=== PATIENT | female | born 1995 | race Hispanic/Latino ===

== ENCOUNTER → 2023-02-27 14:28 | Outpatient (CLI) | payer OTHER, MEDICAID, SELFPAY ==
[2023-03-02 12:43] LABS: Candida species Negative (Negative); Gardnerella vaginalis Positive (Negative); Trichomoas vaginalis Negative (Negative)
== END ==
PROVIDERS: Visit Provider Student in an Organized Health Care Education/Training Program
DX: N89.8 Other specified noninflammatory disorders of vagina (principal)
CPT/HCPCS: 87480; 87510; 87660

== ENCOUNTER → 2023-03-06 16:08 | Outpatient (CLI) | payer OTHER, MEDICAID, SELFPAY ==
[2023-03-06 17:43] LABS: Add Manual Diff / Slide Review NO; Basophils Absolute Auto 100 /uL (0-100); Basophils Percent Auto 0.4 % (0-2); Eosinophils Absolute Auto 100 /uL (0-450); Eosinophils Percent Auto 0.8 % (2-4); Hematocrit 41.9 % (36-46); Hemoglobin 14.3 g/dL (12.0-16.0); Lymphocytes Absolute Auto 2900 /uL (1100-4500); Lymphocytes Percent Auto 19.8 % (25-40); Mean Corpuscular HGB Conc 34.1 % (30-36); Mean Corpuscular Hemoglobin 29.7 PG (26-34); Mean Corpuscular Volume 87.3 fL (80-100); Monocytes Absolute Auto 900 /uL (0-900); Monocytes Percent Auto 6.1 % (3-14); Neutrophils Absolute Auto 10700 /uL (1500-7000); Neutrophils Percent Auto 72.9 % (50-75); Platelet Count 238 X10^3/uL (150-400); Red Blood Cell Count 4.79 X10^6/uL (4.0-5.2); Red Cell Distribution Width 13.6 % (11.6-14.8); White Blood Cell Count 14.7 X10^3/uL (4.5-11.0)
[2023-03-06 17:59] LABS: Hemoglobin A1C% w Est Avg Glu 5.3 % (4.0-6.0)
[2023-03-07 02:14] LABS: Hepatitis B Surface Antigen NEGATIVE s/c (NEGATIVE); Rubella Antibody IgG 11.7 IU/mL (>15)
[2023-03-07 02:20] LABS: HIV 1 & 2 Ab/Ag 4th Gen Combo NEGATIVE (NEGATIVE); Hep C Virus Ab w/Reflex Quant NEGATIVE s/c (NEGATIVE)
[2023-03-08 04:24] LABS: RPR Screen Non Reactive (Non Reactive)
[2023-03-09 15:54] LABS: Varicella IgG Antibody 2134 index (Immune >165)
== END ==
PROVIDERS: Referring Provider Student in an Organized Health Care Education/Training Program; Visit Provider Student in an Organized Health Care Education/Training Program
DX: Z34.80 Encounter for supervision of other normal pregnancy, unspecified trimester (principal)
CPT/HCPCS: 36415; 80055; 83036; 86787; 86803; 86850; 86900; 86901; 87389

== ENCOUNTER → 2023-04-01 09:31 | Outpatient (CLI) | payer OTHER, MEDICAID, SELFPAY ==
[2023-04-01 10:41] LABS: Creatinine Urine Random 43.9 mg/dL; Protein (Total) Urine Random 13 mg/dL (0-12); Protein Creatinine Ratio Urine 0.29 GRAM/24H
[2023-04-01 11:33] LABS: Urine Chlamydia NOT DETECTED; Urine N gonorrhoeae NOT DETECTED
== END ==
PROVIDERS: PCP Student in an Organized Health Care Education/Training Program; Referring Provider Student in an Organized Health Care Education/Training Program; Visit Provider Student in an Organized Health Care Education/Training Program
DX: Z34.80 Encounter for supervision of other normal pregnancy, unspecified trimester (principal); O10.919 Unspecified pre-existing hypertension complicating pregnancy, unspecified trimester
CPT/HCPCS: 82570; 84156; 87086; 87491; 87591

== ENCOUNTER → 2023-08-05 08:01 | Outpatient (CLI) | payer OTHER, MEDICAID, SELFPAY ==
[2023-08-05 09:27] LABS: Glucose Fasting Gestational 112 mg/dL (76-95)
== END ==
PROVIDERS: PCP Nurse Practitioner Family; Referring Provider Obstetrics & Gynecology; Visit Provider Obstetrics & Gynecology
DX: O99.810 Abnormal glucose complicating pregnancy (principal)
CPT/HCPCS: 36415; 82951; 82952

== ENCOUNTER 2023-08-17 14:09 | Observation (INO) | payer OTHER, MEDICAID, SELFPAY ==
[2023-08-17] MEDS: LACTATED RINGERS 1,000 ML 1000 ML IV (15:35)
[2023-08-17 15:56] LABS: Appearance Urine UA CLEAR; Bilirubin Urine UA NEGATIVE (NEGATIVE); Color Urine UA YELLOW; Glucose Urine UA NEGATIVE (Negative); Ketones Urine UA NEGATIVE (NEGATIVE); Leukocyte Esterase Urine UA TRACE (NEGATIVE); Nitrite Urine UA NEGATIVE (Negative); Occult Blood Urine UA NEGATIVE (Negative); Protein Urine UA NEGATIVE (Negative)
[2023-08-17 16:02] LABS: pH Urine UA 6.5 (4.5-8.0)
[2023-08-17 16:08] LABS: Bacteria Urine Moderate (10-30); Culture Indicated Urine Specimen Cultured; Mucus Urine 1+ (Negative); RBC Urine None Seen (0-5/HPF); Squamous Epithelial Cell Urine 5-10 /HPF (0-5/HPF); Urine Volume 10mL (spun); WBC Urine 1-5/HPF (0-5/HPF)
--- NOTE | 2023-08-17 17:22 | P.TNLD_ITS ---
Visit Information Visit Information Date of evaluation: 08/17/23 Primary OB Provider: Margoth Paul On-call OB Provider: Judy Belle Reason for Evaluation: Yes rule out labor Comments/Additional reasons for admission: 27 yo at 35w1d presenting for contractions occuring every 2 min. has been complicated by hx indicated cerclage (previous loss at 19wks EGA) and vaginal progesterone. She began noticing contractions earlier today. After arrival OB triage, she was given 1 L of fluid and contractions slowed down. Contractions were palpating mild and the patient appeared comfort able. Patient's primary OB [facility] Dr. Menjivar was contacted and recommended monitoring to allow contractions to space out. SVE showed a closed thick cervix without any sign of tearing of the cerclage. She was monitored for a few hours and contractions spaced out. Infection swabs were collected and UA showed what appears to be contamination. [facility] Medical History (Updated 07/28/23 @ 12:30 by Ezio Larkin MD) Migraines (~2019) PIH ( induced hypertension) Second trimester Incompetent cervix Surgical History (Updated 02/26/23 @ 08:44 by Jessica Wright RN) No pertinent past surgical history Family History (Updated 03/21/23 @ 20:11 by Gaby Reyna) Mother Cervical incompetence Diabetes mellitus Grandmother Diabetes mellitus Hypertension Grandfather Diabetes mellitus Hypertension Father Hypertension Granddaughter Diabetes mellitus Hypertension Grandfather Diabetes mellitus Hypertension Family/Other Breast cancer Family/Other Diabetes mellitus Hypertension Family/Other Uterine cancer Grandmother Hypertension Social History marital status: unmarried,living together number of children: 0 household members: significant other lives independently: Yes caregiver/support person: No 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) pets and animals: Yes education level: high school (didn't finish senior year) occupational status: unemployed current occupational exposures/hazards: No special vannessa needs: No travel history: over 6 months ago seatbelt use: always water heater temp set < 120 deg: Yes working smoke detector in home: Yes fire extinguisher in home: Yes carbon monox detector in home: Yes firearms in home: No do you feel safe at home: Yes Smoking Status: Former smoker Tobacco: How many years used: 4 second hand exposure: No alcohol intake: former substance use type: marijuana (agrees not to use while /) during the past year weight has: remained stable well-balanced diet: rarely or never daily servings fruits/ve-1 caffeine: Yes Type(s) of exercise: none Review of Systems Review of Systems Narrative: No vaginal discharge No dysuria No vaginal bleeding Endorses contractions Exam Narrative Exam Narrative: Gen: Well-appearing and comfortable, NAD ABd: gravid, contractions palpating very mild : nml external genitalia, firm cervix, cerclage in place, physiologic discharge, digital exam very uncomfortable for pt CV: warm and well perfused Pulm: breathing comfortably on RA Objective Labs Labs: Laboratory Results - last 24 hr 08/17/23 15:19 Urine Color Yellow Urine Appearance Clear Urine pH 6.5 Ur Specific [place] 1.010 Urine Protein Negative Urine Glucose (UA) Negative Urine Ketones Negative Urine Occult Blood Negative Urine Nitrate Negative Urine Bilirubin Negative Urine Urobilinogen 1.0 Ur Leukocyte Esterase Trace H Urine RBC None seen Urine WBC 1-5/hpf Ur Squamous Epith Cells 5-10 /hpf H Urine Bacteria Moderate (10-30) H Urine Mucus 1+ H Ur Culture Indicated? Specimen cultured Vol Urine Centrifuged 10ml (spun) FHT: baseline- 130 Accels- present Decels- not TOCO- AT arrival q1-3 min, at discharge contractions q5-10 min, irregular Reactive NST Diagnosis, Plan/Disposition Plan/Disposition Plan: 27 yo at 35w1d presenting for labor rule out. SVE closed, thick and high station with cerclage in place. UA consistent with contamination. Wet mount sent but not resulted. following IVF contractions slowed significantly and were less uncomfortable. FHT reactive throughout. Discussed wtih primary OB. Ok for discharge, if contraction frequency increases but stable ok to go to for evaluation. If vaginal bleeding or rapidly increasing contractions[facility]. Pt does have f/up scheduled with primary the day after tomorrow. They will discuss next steps for cerclage removal. OB Disposition: home
== END 2023-08-17 17:30 | disposition home or self-care (01) ==
PROVIDERS: Family Medicine; Admitting Provider Obstetrics & Gynecology; PCP Nurse Practitioner Family; Referring Provider Obstetrics & Gynecology; Visit Provider Obstetrics & Gynecology
DX: O47.03 False labor before 37 completed weeks of gestation, third trimester (principal); Z3A.35 35 weeks gestation of pregnancy
CPT/HCPCS: 59050; 81001; 84112; 87086; 96360; G0378; G0379